=== PATIENT | male | born 1975 | race Caucasian/White ===

== ENCOUNTER 2021-06-06 21:17 | Emergency (ER) | payer OTHER ==
[~2021-06-06] VITALS: Ht 188 cm; Wt 102.1 kg
[2021-06-06 21:42] VITALS: BP 122/79
--- NOTE | 2021-06-06 21:42 | NUR ---
BIBS FOR C/O L KNEE PAIN S/P WORK RELATED INTENSE EXERCISE X 14 DAYS AGO "HIKED OVER 20 MILES WITHIN 30 DAYS." PT A/OX3. NO DEFORMITIES OR DISCOLORATION NOTED TO LLE.
--- NOTE | 2021-06-06 21:51 | NUR ---
TRUMAN SHAH AT PT'S BEDSIDE
--- NOTE | 2021-06-06 22:13 | NUR ---
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
--- NOTE | 2021-06-06 23:19 | NUR ---
Patient discharged to home in stable condition. Written and verbal after care instructions given. Patient verbalizes understanding of instruction.
== END 2021-06-06 23:23 | disposition home or self-care (01) ==
LOC: ER 21:17
DX: Z60.2 Problems related to living alone (principal); M25.562 Pain in left knee
CPT/HCPCS: 73564-TC